=== PATIENT | female | born 1960 | race Caucasian/White ===

== ENCOUNTER 2024-01-30 11:04 | Emergency (ER) | payer MEDICAID, SELFPAY ==
[2024-01-30 11:12] VITALS: BP 138/89
[2024-01-30 12:01] VITALS: BP 136/81
--- NOTE | 2024-01-30 12:28 | ED.GENMED ---
History of Present Illness
General
Chief Complaint: Fainting/Passed Out
Time Seen by Provider: 01/30/24 11:47
History of Present Illness
History of Present Illness:
Patient presents to the emergency department with an episode of syncope. She reports history of syncope in the past, similar episodes. She reports that she was recently started on a blood pressure medicine telmisartan 20 mg daily. She reports
that in the past she has syncopized in blood pressure medicine and her blood pressure dropped. Denies any chest pain or shortness of breath. She is feeling back to baseline. Denies any leg swelling. There was no injury or head strike.
Past History
Past History
ED Past Medical History: Other (C7 bulging disc)
ED Past Surgical History: Orthopedic (Foot neuroma)
Social History
Tobacco: Non-smoker
Alcohol: Occasional
Drug: None
Living: with family
Employment: Employed
Phy Exam
Physical Exam
Physical Exam:
GENERAL APPEARANCE: NAD, well developed/ well nourished
EYES lids/conjunctiva normal
EARS/NOSE/THROAT Mucous membranes moist, uvula midline without oral pharyngeal erythema, exudate or swelling
HEAD/NECK normocephalic atraumatic, neck is supple.
RESPIRATORY respiratory effort normal, speaks in full sentences, no accessory muscle use. Lungs clear to auscultation without rhonchi, wheezes, rales
CARDIAC Regular rate and rhythm, no edema.
ABDOMINAL Soft, ND/NT.
MUSCLES/EXTREMITIES No abnormal range of motion, no swelling.
SKIN Warm, pink and dry. No rashes
NEUROLOGICAL Speech is clear and appropriate. Normal level of consciousness. 5/5 strength in all extremities.
PSYCH Normal mood and affect. Judgement/competence is appropriate
Course
Orders/Labs/Results
Orders:
Orders
01/30/24 11:06
Electrocardiogram (*1) Urgent
Reason for Study: Syncope
EKG- Treatment ONCE
01/30/24 12:10
0.9% Sodium Chloride 1000 ml [Nss] 1,000 ml IV BOLUS
01/30/24 12:21
Basic Metabolic Panel Urgent
Complete Blood Count/With Diff Urgent
Abnormal Lab Results
01/30/24
12:21
WBC 13.5 H 10^3/uL
(4.8-10.8)
MCH 32.2 H pg
(27.0-31.0)
Abs Immat Gran (auto) 0.1 H 10^3/uL
(0-0.05)
Absolute Neuts (auto) 11.4 H 10^3/uL
(1.4-6.5)
Absolute Monos (auto) 0.9 H 10^3/uL
(0.1-0.6)
Neutrophils % 84.3 H %
(42.2-75.2)
Lymphocytes % 8.6 L %
(20.5-51.1)
Glucose 100 H mg/dl
(70-99)
01/30/24 12:21
01/30/24 12:21
Vital Signs
Initial and Last Documented VS:
Initial Vital Signs
Temp Pulse Resp BP Pulse Ox
98.1 F 104 18 138/89 100
01/30/24 11:12 01/30/24 11:12 01/30/24 11:12 01/30/24 11:12 01/30/24 11:12
Last Documented Vital Signs
Temp Pulse Resp BP Pulse Ox
98.1 F 87 16 141/93 100
01/30/24 11:12 01/30/24 14:00 01/30/24 14:00 01/30/24 14:00 01/30/24 14:00
*Critical Care Note
Total Time (30-74mins, 75-104mins- exclusive of procedures): Not Applicable
ED Attending Note
ED Attending Note
ED Attending Note:
Patient with an episode of syncope. She reports similar history in the past. On arrival patient is hemodynamically stable. She has normal intervals and her EKG. 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
reports no known coronary artery disease, she does see a manager summer. Patient denies any chest pain or anginal equivalents currently. Suspect dehydration in addition likely side effect from blood pressure medicine. I instructed her to
discontinue the telmisartan until she follows up with her primary doctor this week for blood pressure recheck. Will give IV fluids and check baseline labs. Of note, patient recently treated for UTI, symptoms have entirely resolved though she
states she did have some diarrhea while on the antibiotic. This may have also been related to her syncope
Patient reassessed at this time. She is feeling much better. She is asymptomatic. Labs with mild leukocytosis though patient is afebrile without any infectious symptoms at this time. Possibly stress related in the setting of syncope. Chemistry
without significant dehydration or other findings. Patient stable for close outpatient follow-up
-
Portions of this chart may have been created with voice recognition software.� Occasional wrong word or��sound alike� substitutions may have occurred due to the inherent limitations of voice recognition software.
Discharge Plan
Departure
Patient Disposition: Home (Routine Discharge)
Date of Disposition: 01/30/24
Time of Disposition: 14:07
Patient with high blood pressure during this ER visit?: Yes
Discharge Problem:
Syncope
Instructions: Syncope (Fainting) (DC)
Referrals:
NONE,* [Family Provider] -
Interventions
Interventions:
*Risk Screen - Suicide Last Done: 01/30/24 11:12
*Neglect/Abuse Screening Last Done: 01/30/24 11:12
*ED COVID-19 Vaccine History Last Done: 01/30/24 11:19
ED- Cardiac Assessment Last Done: 01/30/24 12:35
ED- Neurological Assessment Last Done: 01/30/24 12:35
Discharge Date and Time
Print Language: VENEZUELAN
[2024-01-30] MEDS: NSS 1000 IV (12:33)
[2024-01-30 12:44] LABS: % Basophils 0.2 % (0-2); % Immature Granulocytes 0.5 % (0-0.5); % Lymphocytes 8.6 % (20.5-51.1); % Monocytes 6.4 % (1.7-9.3); % Neutrophils 84.3 % (42.2-75.2); Absolute Immature Granulocytes 0.1 10^3/uL (0-0.05); Absolute Lymphocytes 1.2 10^3/uL (1.2-3.4); Absolute Monocytes 0.9 10^3/uL (0.1-0.6); Absolute Neutrophils 11.4 10^3/uL (1.4-6.5); Hematocrit 45.4 % (37.0-47.0); Mean Corpuscular Hgb 32.2 pg (27.0-31.0); Mean Corpuscular Volume 97.4 fL (81.0-99.0); Mean Platelet Volume 9.1 fL (7.4-10.4); Nucleated Red Blood Cells % 0 %; Platelet Count 277 10^3/uL (130-400); Red Blood Cell Count 4.66 10^6/uL (4.20-5.40); Red Cell Dist. Width 13.3 % (11.5-14.5); White Blood Cell Count 13.5 10^3/uL (4.8-10.8)
[2024-01-30 12:52] LABS: Blood Urea Nitrogen 11 mg/dl (7-17); Carbon Dioxide 30 mmol/L (22-30); Chloride 101 mmol/L (98-107); Glucose 100 mg/dl (70-99); Sodium 141 mmol/L (135-145); eGFR > 60.00
[2024-01-30 14:00] VITALS: BP 141/93
== END 2024-01-30 14:21 | disposition home or self-care (01) ==
LOC: EMR 11:04
PROVIDERS: EMERGENCY PHYSICIAN Emergency Medicine
DX: R55 Syncope and collapse (principal); I10 Essential (primary) hypertension
CPT/HCPCS: 99284; 96360; 80048; 85025; 93005